=== PATIENT | male | born 1965 | race American Indian/Alaskan Native ===

== ENCOUNTER 2019-09-01 08:42 | Outpatient (CLI) | payer BC, MEDICARE ==
--- NOTE | 2019-09-01 10:13 | Cat Scan Report ---
CT ABDOMEN AND PELVIS WITHOUT CONTRAST INDICATION: MALIGNANT NEOPLASM OF PROSTATE. COMPARISON: No relevant prior imaging study available. TECHNIQUE: Axial, coronal and sagittal CT imaging of the abdomen and pelvis was performed without co ntrast. Lack of intravenous contrast limits evaluation of the vascular and solid organs. All CT sca ns at this location are performed using CT dose reduction for ALARA by means of automated exposure co ntrol. FINDINGS: LOWER CHEST: No significant abnormality. LIVER: No significant abnormality. BILIARY: Cholelithiasis is noted with moderate distention of the gallbladder without surrounding infl ammation or wall thickening. No biliary ductal dilatation. PANCREAS: No significant abnormality. SPLEEN: No significant abnormality. ADRENALS: No significant abnormality. KIDNEYS AND URETERS: There is nonspecific mild bilateral perinephric fat stranding, which could be se condary to renal insufficiency. No other significant abnormality. GI TRACT: No significant abnormality of the stomach, small bowel or colon. Unremarkable appendix. PERITONEUM: No free fluid. No free air. No fluid collection. LYMPH NODES: No significant adenopathy. VASCULATURE: The aorta is normal in caliber with moderate to severe generalized atherosclerosis. URINARY BLADDER: Mostly collapsed without a distinct abnormality. REPRODUCTIVE ORGANS: No significant abnormality. ADDITIONAL FINDINGS: None. SKELETAL SYSTEM: Nonspecific lucent and sclerotic changes are seen along the left femoral head. No ot her aggressive appearing osseous lesion is seen. IMPRESSION: 1. No evidence of metastatic disease. 2. Nonspecific lucent and sclerotic changes along the left femoral head may represent AVN. Correlatio n with prior CT imaging of the pelvis would be helpful. 3. Additional findings as above. Signer Name: Eric Pineda MD Signed: 09/01/2019 10:09 AM Workstation Name: [id number]
--- NOTE | 2019-09-01 12:56 | Nuclear Medicine Report ---
NUCLEAR MEDICINE BONE SCAN, WHOLE BODY INDICATION: MALIGNANT NEOPLASM OF PROSTATE. TECHNIQUE: 25 mCi of Tc-99m MDP were injected IV. Whole body images were obtained. COMPARISON: CT abdomen pelvis without contrast performed the same day. FINDINGS: Skeletal Structures: Fairly symmetric, likely degenerative uptake is present involving the shoulders , spine, hips and ankles.. Skeletal Lesions: Focal increased uptake is identified in right fourth and fifth anterior ribs in a l inear fashion. This pattern is most consistent with a traumatic injury. Very subtle rib deformities w ith mild sclerosis is identified in these areas on the CT images. There is also very subtle focal upt leah in the left posterior 11th rib. The CT images demonstrate a very subtle 5 mm lucent lesion with a well-defined border in this area. Soft Tissues: Normal. Kidneys: Normal, symmetric activity. Additional Findings: There is moderate focal activity overlying the left paranasal region which proba magdaleno is secondary to sinus disease.. IMPRESSION: Probably negative bone scan. There is subtle rib uptake as described above. Abnormal uptake in right anterior fourth and fifth ribs is probably posttraumatic in nature. There is also very subtle uptake in the left posterior rib which appears to correlate with a tiny lucent lesion with a well-defined b order. I am not entirely convinced this is a metastasis. There is no evidence for abnormal pelvic or spinal uptake. These correlate with the patient's clinical presentation and PSA levels. Signer Name: Ean Richardson Jr, MD Signed: 09/01/2019 12:51 PM Workstation Name: [id number]
== END 2019-09-01 08:43 | disposition home or self-care (01) ==
LOC: NM 08:42
PROVIDERS: ATTEND Urology
DX: K80.20 Calculus of gallbladder without cholecystitis without obstruction (principal); N28.9 Disorder of kidney and ureter, unspecified; C61 Malignant neoplasm of prostate
CPT/HCPCS: 74176; 78306; A9503